=== PATIENT | female | born 1945 | race Caucasian/White ===

== ENCOUNTER 2019-12-01 12:10 | Inpatient (IN) ==
[2019-12-01] MEDS ORDERED: ZOFRAN IV ONE (13:21)
[2019-12-01] MEDS ORDERED: M.V.I.-12 10 ML, FOLIC ACID 1 MG, MAGNESIUM SULFATE 1 GM, THIAMINE 100 MG in NS 1,000 ML IV ONE (13:21)
[2019-12-01] MEDS ORDERED: PEPCID IV ONE (13:22)
[2019-12-01] MEDS ORDERED: PROTONIX IV ONE (13:22)
[2019-12-01] MEDS ORDERED: SODIUM CHLORIDE 0.9% INJ ONE ×2 (13:22)
[2019-12-01 14:00] LABS: URINE SOURCE CLEAN CATCH
[2019-12-01 14:07] LABS: BILIRUBIN URINE NEGATIVE (NEGATIVE); BLOOD URINE NEGATIVE (NEGATIVE); COLOR YELLOW; GLUCOSE URINE NEGATIVE (NEGATIVE); KETONE URINE 60 mg/dL (NEGATIVE); LEUKOCYTES URINE NEGATIVE (NEGATIVE); NITRITE URINE NEGATIVE (NEGATIVE); PROTEIN URINE 30 mg/dL (NEGATIVE); SP GRAVITY URINE 1.026; TURBIDITY URINE CLEAR (CLEAR); UROBILINOGEN URINE 2 mg/dL (NORMAL)
[2019-12-01 14:11] LABS: UR EPITHELIAL CELLS <10 /HPF (<10); URINE BACTERIA NEGATIVE /HPF; URINE RBC <10 /HPF (<10); URINE WBC <10 /HPF (<10)
[2019-12-01 14:15] LABS: UR AMPHETAMINES QUAL NONE DETECTED (NONE DETECT); UR BARBITUATES QUAL NONE DETECTED (NONE DETECT); UR BENZODIAZEPIN QUAL NONE DETECTED (NONE DETECT); UR CANNABINOIDS QUAL NONE DETECTED (NONE DETECT); UR COCAINE QUAL NONE DETECTED (NONE DETECT); UR METHADONE QUAL NONE DETECTED (NONE DETECT); UR OPIATES QUAL NONE DETECTED (NONE DETECT); UR OXYCODONE QUAL NONE DETECTED (NONE DETECT); UR PCP QUAL NONE DETECTED (NONE DETECT)
[2019-12-01 14:21] LABS: BASO# 0.02 X1000 (0.0-0.2); BASO% 0.2 % (0.0-0.8); HEMATOCRIT 37.6 % (37.0-47.0); HEMOGLOBIN 13.3 g/dL (12.0-16.0); IMM GRAN# 0.03 X1000 (0.0-0.04); IMM GRAN% 0.3 % (0.0-0.5); LYMPH# 0.67 X1000 (1.2-3.4); LYMPH% 6.5 % (20.5-51.1); MCH 33.1 PG (27-31); MCHC 35.4 g/dL (33-37); MCV 93.5 FL (81-99); MONO# 0.72 X1000 (0.11-0.59); MONO% 6.9 % (1.7-9.3); MPV 10.3 FL (7.4-10.4); NEUT# 8.92 X1000 (1.4-6.5); NEUT% 86.1 % (42.2-75.2); PLT 229 X1000 (130-400); RBC 4.02 XMIL (4.2-5.4); RDW 11.6 % (11.5-14.5); WBC 10.36 X1000 (4.8-10.8)
[2019-12-01 14:32] LABS: URINE CASTS NONE SEEN; URINE CRYSTALS NONE SEEN; URINE YEAST NONE SEEN
[2019-12-01 14:39] LABS: AGAP 13; ALB/GLOB RATIO 2.2; ALBUMIN 4.3 g/dL (3.5-5.0); ALKALINE PHOSPHATASE 61 U/L (32-104); BUN 9 mg/dL (8-22); CALCIUM 9.1 mg/dL (8.8-10.2); CHLORIDE 78 mmol/L (98-107); COSMO 230; CREATININE 0.7 mg/dL (0.5-0.9); ESTIMATED GFR > 60; GLUCOSE 140 mg/dL (70-104); GOT 94 U/L (10-30); GPT 100 U/L (10-36); MAGNESIUM 1.5 mg/dL (1.5-2.7); POTASSIUM 4.9 mmol/L (3.5-5.1); TCO2 22 mmol/L (25-35); TOTAL BILIRUBIN 1.44 mg/dL (0.20-1.00); TOTAL PROTEIN 6.3 g/dL (6.3-8.3)
[2019-12-01 14:42] LABS: SODIUM 116 mmol/L (136-145)
--- NOTE | 2019-12-01 15:17 | PROVIDER DOCUMENTATION ---
This chart was entered by Sonali Mendez Scribe, acting as scribe for Otilio Morales MD. HPI-Abdominal Pain/GI Problem - General Chief Complaint: Vomiting Stated Complaint: vomiting x 3 days Time Seen by Provider: 12/01/19 12:57 Source: patient, EMS Allergies/Adverse Reactions: Patient Allergies Allergy/AdvReac Type Severity Reaction Status Date / Time No Known Allergies Allergy Verified 11/12/15 19:58 Home Medications: Home Medication List Medication Instructions Recorded Confirmed Last Taken Type Bupropion HCl [Bupropion Xl] 300 mg PO DAILY 12/01/19 12/01/19 Unknown History Estradiol 1.5 mg PO DAILY 12/01/19 12/01/19 Unknown History Losartan [Cozaar] 100 mg PO DAILY 12/01/19 12/01/19 Unknown History Metoprolol Succinate E.r. [Toprol 25 mg PO DAILY 12/01/19 12/01/19 Unknown History Xl] Neuro Calm 1 cap PO DAILY 12/01/19 12/01/19 Unknown History Omeprazole [Prilosec] 20 mg PO DAILY 12/01/19 12/01/19 Unknown History Pregnenolone 200 mg PO DAILY 12/01/19 12/01/19 Unknown History Progesterone, Micronized 250 mg PO QHS 12/01/19 12/01/19 Unknown History [Progesterone] Thyroid,Pork [Nature-Throid] 48.75 mg PO DAILY 12/01/19 12/01/19 Unknown History - History of Present Illness-ABD Nature of Presenting Problems: Pt is a 74 yowf brought in by EMS with c/o of vomiting for the last 3 days. Pt reports that she overdid her wine consumption on Tuesday night and has been unable keep any food or drink down since then and she thinks she is dehydrated. Pt reports that she usually drinks 6 bottles of chardonay wine per week. Pt says that she has just dry heaved this morning. Pt denies abdominal pain and diarrhea. Pt has a hx of HTN, depression, thyroid problems and heartburn. Pt is alert and pale in appearance. Pain Radiation: reports: no radiation Quality of Pain: reports: none Severity in ED: reports: mild Onset/Duration: reports: abrupt, 3 days ago Timing: reports: still present Activities at Onset: reports: light activity, other (drinkin wine). denies: out of country travel Modifying Factors: improves with: lying down. worse with: eating, movement, vomiting Associated Symptoms: reports: loss of appetite, vomiting. denies: constipation, diarrhea, fever/chills, headaches, shortness of breath Last BM: unsure Dark Stools Present?: reports: none noticed Rectal Bleeding: reports: none # of Diarrhea Episodes: 0 Rectal Pain: reports: none # of Vomiting Episodes: 0 (pt states that all she has done this morning is dry heave ) Bruising or Bleeding Gums?: No Similar Symptoms Previously?: No Recently seen or treated by another doctor?: No Review of Systems - Adult - REVIEW OF SYSTEMS - ADULT Constitutional: denies: chills, fever Eyes: reports: no symptoms reported Ears, Nose, Mouth & Throat: reports: no symptoms reported Cardiovascular: denies: chest pain, syncope Respiratory: denies: cough, shortness of breath Gastrointestinal: reports: see HPI, vomiting. denies: abdominal pain, diarrhea, nausea Genitourinary: reports: no symptoms reported Musculoskeletal: reports: no symptoms reported Integumentary: reports: no symptoms reported Neurological: reports: no symptoms reported Psychiatric: reports: no symptoms reported Endocrine: reports: no symptoms reported Hematologic/Lymphatic: reports: no symptoms reported Allergic/Immunologic: reports: no symptoms reported All Other Systems: Reviewed and Negative Past History - Adult - PAST MEDICAL HISTORY-ADULT Review of Records: reports: Nursing Assessment Review, Medications Reviewed, Social history reviewed & non-contributory. Major Childhood Illnesses: reports: denies history Cardiovascular: reports: blood clots, HTN Respiratory: reports: denies history Gastrointestinal: reports: denies history Obstetrical/Gynecological: reports: denies history Genitourinary: reports: denies history Musculoskeletal: reports: chronic pain, neck/back injury Neurological: reports: denies history Psychiatric: reports: depression Endocrine/Immune: reports: denies history Other Conditions: reports: denies history - PRIOR SURGERIES/PROCEDURES Surgical/Procedure History: reports: appendectomy, back/neck - IMMUNIZATION STATUS Childhood Immunizations: See Nurse Assessment Flu Vaccine: See Nurse Assessment - FAMILY HISTORY Family History: reviewed, not pertinent - SOCIAL HISTORY Smoking: denies Substance Use: alcohol Alcohol Use Frequency: every day Number of drinks per typical drinking period:: 3-4 drinks Physical Exam-General - PHYSICAL EXAM-ADULT Initial Vital Signs Reviewed: Yes - CONSTITUTIONAL General Appearance: alert, mild distress - EYES Eyes: PERRL/EOMI, pink conjunctivae - HEAD, EARS, NOSE, MOUTH & THROAT HENMT: normocephalic/atraumatic, moist mucous membranes - NECK Neck: non-tender, full range of motion, supple - RESPIRATORY Respiratory: chest non-tender, lungs clear, normal breath sounds, no respiratory distress - CARDIOVASCULAR Cardiovascular: normal peripheral pulses, regular rate, rhythm - GASTROINTESTINAL (ABDOMEN) Abdominal Exam: normal bowel sounds, soft - LYMPHATIC Lymphatic: no adenopathy - MUSCULOSKELETAL Back Exam: normal inspection Extremity: non-tender - SKIN Integumentary: normal turgor, warm/dry, pallor - NEUROLOGIC Neurologic: grossly normal - PSYCHIATRIC Psych/Mental Status: normal mood/affect, normal thought content, normal thought process, oriented x 3 Progress - PLAN OF CARE/RESULTS Progress/Plan/Lab Results: Vital Signs - 8 hr 12/01/19 12:16 Temperature 98.1 F Pulse Rate 71 Respiratory Rate 18 Blood Pressure 139/99 O2 Sat by Pulse Oximetry 97 Result Diagrams: 12/01/19 13:41 12/01/19 13:41 - CONSULTS/PCP/HOSPITALIST Notification #1 *Consult/PCP/Hospitalist*: Dr. Sprague Time Discussed: 14:55 Reason/Comments: Discussing POC Departure - Departure Date of Disposition Decision: 12/01/19 Time of Disposition Decision: 15:14 DIAGNOSIS: Hyponatremia, Chronic alcohol use, Weakness Vomiting Qualifiers: Vomiting type: unspecified Vomiting Intractability: unspecified Nausea presence: with nausea Qualified Code(s): R11.2 - Nausea with vomiting, unspecified Disposition: ADMITTED INPATIENT 09 Certified Medical Emergency: Emergent Condition: Stable Referrals and Follow-Ups: Boo Shi MD [Primary Care Provider] - - Critical Care Note This patient required my direct & personal management of CC.: No Attestation - Physician/ RAMANA Attestation Patient care was provided by Advanced Practice Provider:: No The physician spent face to face time with patient:: Yes Advanced Practice Provider documentation review:: Supervising physician onsite and consulted in the evaluation and care of this patient. The physician did have a face to face encounter with the patient. This chart was documented by the indicated scribe, (Mendez,Sonali L., Scribe) and accurately reflects the services I performed and decisions made by me, Otilio Morales MD, as attested by the provider's signature.
[2019-12-01] MEDS ORDERED: NS 1,000 ML IV SCH ×3 (16:13→22:00)
[2019-12-01] MEDS ORDERED: ZOFRAN IV PRN (16:13)
[2019-12-01] MEDS: LOVENOX SUBQ SCH (16:24)
--- NOTE | 2019-12-01 16:41 | EKG Report ---
Test Performed on : 12/01/2019 4:34:16 PM Test Reason : vomiting Blood Pressure : / mmHG Vent. Rate : 078 BPM Atrial Rate : 078 BPM P-R Int : 152 ms QRS Dur : 100 ms QT Int : 386 ms P-R-T Axes : 035 017 026 degrees QTc Int : 440 ms Normal sinus rhythm. Normal ECG No previous ECGs available Confirmed by Ramon Sprague MD ([id number]) on 12/02/2019 5:01:23 PM
[2019-12-01] MEDS ORDERED: ATIVAN IV ONE (17:26)
[2019-12-01 18:32] LABS: AMYLASE 23 U/L (20-200); LIPASE 28 U/L (13-60)
--- NOTE | 2019-12-01 19:59 | HISTORY AND PHYSICAL ---
PRIMARY CARE PHYSICIAN: Dr. Pradip Shi. CHIEF COMPLAINT: Anorexia, nausea, vomiting. HISTORY OF PRESENT ILLNESS: A 74-year-old, white female with past medical history significant for hypertension, mixed hyperlipidemia, major depression, and reflux disease presents for evaluation of above-mentioned symptoms. Pertinent history of present illness began on Tuesday. Historically, patient states that she does drink in excess. She drinks approximately 1 bottle of wine daily. On Tuesday, the patient states she drank 1-1/2 bottles of wine. The patient did not feel well Tuesday evening. On , she was unable to eat secondary to intractable nausea and vomiting associated with any p.o. intake. Since that time, patient states that she has had minimal liquid or solid intake. She has not had any alcohol since that time. She denies fevers, chills, shortness of breath, chest pain, hematemesis, melena, or hematochezia. Because of her persistent symptoms, patient presented to the emergency department today. Full evaluation was pursued. The patient was found to have elevated liver enzymes as well as a significantly low sodium of 116. The patient will be admitted to the hospital for full evaluation and management. Of note, over the course of the last 24-48 hours, patient has exhibited evidence of withdrawal with increasing tremor. PAST MEDICAL HISTORY: 1. Hypertension. 2. Mixed hyperlipidemia. 3. Depression. 4. Reflux disease. 5. Alcohol use. 6. History of a deep venous thrombosis. CURRENT MEDICATIONS: 1. Estradiol 1.5 mg daily. 2. NeuroCalm daily. 3. Omeprazole 20 mg daily. 4. Progesterone 250 mg at bedtime. 5. Pregnenolone 200 mg daily. 6. Bupropion ER 300 mg daily. 7. Losartan 100 mg daily. 8. Metoprolol ER 25 mg daily. 9. Nature Thyroid 48.75 mg daily. ALLERGIES: The patient states she has difficulty tolerating statin medication. SOCIAL HISTORY: Patient denies tobacco or illicit drug use. She drinks approximately 1 bottle of wine daily. She works at the [employer] office. FAMILY HISTORY: Patient's mother passed at age 36 secondary to complications of vaginal cancer. Patient's patient's father passed at age 42 secondary to complications of alcoholism. REVIEW OF SYSTEMS: A 12 point review of systems was performed. Pertinent positives and negatives are noted in history present illness. PHYSICAL EXAMINATION: VITAL SIGNS: Temperature 98.9 degrees, heart rate 79, respirations 20, blood pressure is 142/68. GENERAL: Slightly anxious. No acute distress. HEENT: Normocephalic, atraumatic. Pupils equal, round, react to light. Extraocular muscles intact. Sclerae anicteric. [place] conjunctivae. Oral and nasopharynx clear without exudate. NECK: Supple. No lymphadenopathy. No thyromegaly. No bruits auscultated. CARDIOVASCULAR: Regular rate and rhythm. No significant murmurs, rubs, or gallops. PULMONARY: Clear to auscultation bilaterally. ABDOMEN: Soft, nontender, nondistended. Positive bowel sounds. EXTREMITIES: Moves all extremities well. No significant clubbing, cyanosis, or edema. NEUROLOGIC: Cranial 2 through 12 grossly intact. Motor and sensory grossly intact. PSYCHOLOGIC: Appropriate. LABORATORY DATA: White blood cell count 10.36, hemoglobin 13.3, hematocrit 37.6, platelet count 229,000. Sodium 116, potassium 4.9, chloride 78, bicarb 22, BUN [*] creatinine 0.7, glucose 140, calcium 9.1, magnesium 1.5, total bilirubin 1.44, total protein 6.3, albumin 4.3, alkaline phosphatase 61, AST 94, ALT 100, amylase 23, lipase 28. Urinalysis revealed ketones and protein present. ASSESSMENT AND PLAN: 74-year-old white female with past medical history as noted presents for evaluation of intractable nausea and vomiting. Symptoms began after a binge drinking episode. In the setting of elevated liver enzymes and significant symptoms, this likely is a consequence of alcoholic hepatitis. The patient will be admitted to the hospital for full evaluation and management. 1. Admit to General Medicine. 2. Alcoholic hepatitis-per history, this is secondary to excessive alcohol intake. Patient will be placed n.p.o. We will initiate aggressive but cautious IV hydration. We will continue supportive care. 3. Hyponatremia-sodium has decreased considerably below her baseline in the past. This likely is a consequence of decreased p.o. intake as well as nausea and vomiting. The patient will be started on IV hydration. We will check a sodium level every 6 hours. We will adjust fluids to maintain a sodium increase of approximately 8 to 10 millimoles per L per day. 4. Intractable nausea, vomiting. This is a consequence of alcoholic hepatitis with hyponatremia contributing. We will treat supportively. 5. Alcoholism-patient is manifesting some signs of alcohol withdrawal. We will provide a dose of Ativan now. We will titrate off as necessary. 6. Reflux disease-patient is at high risk for gastritis. We will start IV pantoprazole while n.p.o. 7. Hypertension-patient's losartan and metoprolol will be continued for now. This will be followed. 8. Depression/anxiety-we will continue Wellbutrin therapy. 9. Fluid, electrolytes, nutrition. We will monitor electrolytes, normal saline at 75 mL an hour. N.p.o. prophylaxis. Patient will be placed on subcu Lovenox. cc: Ramon Sprague MD
[2019-12-01] MEDS: ATIVAN IV PRN (20:21)
[2019-12-01 21:19] LABS: AGAP 13; BUN 7 mg/dL (8-22); CALCIUM 8.3 mg/dL (8.8-10.2); CHLORIDE 87 mmol/L (98-107); COSMO 245; CREATININE 0.6 mg/dL (0.5-0.9); ESTIMATED GFR > 60; GLUCOSE 112 mg/dL (70-104); SODIUM 122 mmol/L (136-145); TCO2 22 mmol/L (25-35)
[2019-12-02 02:00] LABS: BASO# 0.02 X1000 (0.0-0.2); BASO% 0.3 % (0.0-0.8); EOS# 0.02 X1000 (0.0-0.7); EOS% 0.3 % (0.0-10.0); HEMATOCRIT 36.9 % (37.0-47.0); HEMOGLOBIN 12.6 g/dL (12.0-16.0); LYMPH# 0.96 X1000 (1.2-3.4); LYMPH% 12.1 % (20.5-51.1); MCH 32.6 PG (27-31); MCHC 34.1 g/dL (33-37); MCV 95.6 FL (81-99); MONO# 0.97 X1000 (0.11-0.59); MONO% 12.2 % (1.7-9.3); MPV 9.5 FL (7.4-10.4); NEUT# 5.96 X1000 (1.4-6.5); NEUT% 75.1 % (42.2-75.2); PLT 204 X1000 (130-400); RBC 3.86 XMIL (4.2-5.4); RDW 11.6 % (11.5-14.5); WBC 7.93 X1000 (4.8-10.8)
[2019-12-02 02:15] LABS: AMYLASE 23 U/L (20-200); LIPASE 34 U/L (13-60)
[2019-12-02 02:23] LABS: AGAP 12; BUN 7 mg/dL (8-22); CALCIUM 8.5 mg/dL (8.8-10.2); CHLORIDE 94 mmol/L (98-107); COSMO 258; CREATININE 0.7 mg/dL (0.5-0.9); ESTIMATED GFR > 60; GLUCOSE 117 mg/dL (70-104); POTASSIUM 4.4 mmol/L (3.5-5.1); SODIUM 129 mmol/L (136-145); TCO2 23 mmol/L (25-35)
[2019-12-02] MEDS: ATIVAN IV PRN ×2 (05:49→17:13)
[2019-12-02 06:05] LABS: AGAP 11; BUN 6 mg/dL (8-22); CALCIUM 8.5 mg/dL (8.8-10.2); CHLORIDE 92 mmol/L (98-107); COSMO 253; CREATININE 0.7 mg/dL (0.5-0.9); ESTIMATED GFR > 60; GLUCOSE 110 mg/dL (70-104); POTASSIUM 3.9 mmol/L (3.5-5.1); SODIUM 127 mmol/L (136-145); TCO2 24 mmol/L (25-35)
[2019-12-02] MEDS: PRILOSEC PO SCH (06:10)
[2019-12-02] MEDS: COZAAR PO SCH (10:12)
[2019-12-02] MEDS: WELLBUTRIN XL PO SCH (10:12)
[2019-12-02] MEDS: TOPROL XL PO SCH (10:12)
[2019-12-02] MEDS: PATIENT'S OWN MED PO SCH (10:13)
[2019-12-02 14:04] LABS: AGAP 10; BUN 7 mg/dL (8-22); CALCIUM 8.6 mg/dL (8.8-10.2); CHLORIDE 90 mmol/L (98-107); COSMO 250; CREATININE 0.6 mg/dL (0.5-0.9); ESTIMATED GFR > 60; GLUCOSE 105 mg/dL (70-104); POTASSIUM 4.4 mmol/L (3.5-5.1); SODIUM 125 mmol/L (136-145); TCO2 25 mmol/L (25-35)
[2019-12-02] MEDS ORDERED: SODIUM CHLORIDE 0.9% INJ SCH (16:00)
--- NOTE | 2019-12-02 16:19 | PROGRESS NOTE ---
DATE: 12/02/2019 SUBJECTIVE: The patient was admitted yesterday with presumed alcoholic hepatitis and associated significant hyponatremia. The patient was started on IV fluids. She was placed n.p.o. As-needed Ativan was initiated for withdrawals. Initial sodium was noted to be 116, this trended upwards to 129 within approximately 12 hours of admission. IV fluids were held. Most recent sodium was 125. Upon arrival this morning, the patient stated she felt much improved. She was tolerating water without significant nausea or vomiting. Her anxiety and tremor had improved considerably with Ativan. She denies fevers, chills, shortness of breath, or chest discomfort. OBJECTIVE: Vital Signs: T-max 99.4, heart rate 72 to 81, respirations 17 to 22, blood pressure is 139 to 159/65 to 99. General: Well nourished, well developed, no acute distress. Cardiovascular: Regular rate and rhythm. No significant murmurs, rubs or gallops. Pulmonary: Clear to auscultation bilaterally. Abdomen: Soft, nontender, nondistended. Positive bowel sounds. Extremities: Moves all extremities well. No significant clubbing, cyanosis or edema. Dermatologic: Evaluation reveals no evidence of rash. LABORATORY DATA: Sodium 125, potassium 4.4, chloride 90, bicarbonate 25, BUN 7, creatinine 0.6, glucose 105, calcium 8.6. ASSESSMENT AND PLAN: 1. Alcoholic hepatitis - Overall, the patient clinically is improving. She is tolerating water this morning. We will slowly advance diet. We will treat alcohol withdrawal as described below. 2. Hyponatremia - Initial sodium was 116. This increase to 129 and IV fluids were held. At present time, her sodium is 125. As the patient is tolerating p.o., we will start a liquid diet. We will continue to monitor BMP every 6 hours. Should sodium continue to trend downward, we will consider resuming therapy. 3. Intractable nausea and vomiting - This likely was a consequence of alcoholic hepatitis with hyponatremia contributing. With supportive care, she has achieved significant improvement. 4. Alcoholism/alcohol withdrawal - Today, the patient is much more comfortable with as needed Ativan intervention. We will continue this for now. 5. Reflux disease - We will continue the patient on IV pantoprazole. If the patient continues to tolerate p.o., we will plan transitioning to oral PPI in the near future. 6. Hypertension - Blood pressure is slightly elevated. For now, we will continue metoprolol and losartan therapy. We will follow this. 7. Depression/anxiety - We will continue the patient on Wellbutrin therapy. 8. Disposition - The patient continues to require senior care care in a hospital setting. We will plan discharge home once appropriate. cc: Ramon Sprague MD
[2019-12-02] MEDS: PROTONIX IV SCH (16:35)
[2019-12-02] MEDS: LOVENOX SUBQ SCH (16:35)
[2019-12-02 21:51] LABS: AGAP 9; BUN 7 mg/dL (8-22); CALCIUM 8.2 mg/dL (8.8-10.2); CHLORIDE 94 mmol/L (98-107); COSMO 253; CREATININE 0.6 mg/dL (0.5-0.9); ESTIMATED GFR > 60; GLUCOSE 100 mg/dL (70-104); POTASSIUM 4.2 mmol/L (3.5-5.1); SODIUM 127 mmol/L (136-145); TCO2 24 mmol/L (25-35)
[2019-12-03 01:57] LABS: AGAP 12; BUN 7 mg/dL (8-22); CALCIUM 8.4 mg/dL (8.8-10.2); CHLORIDE 95 mmol/L (98-107); COSMO 259; CREATININE 0.6 mg/dL (0.5-0.9); ESTIMATED GFR > 60; GLUCOSE 105 mg/dL (70-104); POTASSIUM 4.1 mmol/L (3.5-5.1); SODIUM 130 mmol/L (136-145); TCO2 23 mmol/L (25-35)
[2019-12-03] MEDS: PRILOSEC PO SCH (06:26)
[2019-12-03 08:43] LABS: AGAP 11; BUN 7 mg/dL (8-22); CALCIUM 8.7 mg/dL (8.8-10.2); CHLORIDE 93 mmol/L (98-107); COSMO 255; CREATININE 0.6 mg/dL (0.5-0.9); ESTIMATED GFR > 60; GLUCOSE 169 mg/dL (70-104); POTASSIUM 3.4 mmol/L (3.5-5.1); SODIUM 126 mmol/L (136-145); TCO2 22 mmol/L (25-35)
[2019-12-03 08:55] LABS: ALB/GLOB RATIO 1.3; ALBUMIN 3.5 g/dL (3.5-5.0); DIRECT BILIRUBIN 0.2 mg/dL (0.00-0.20); TOTAL BILIRUBIN 0.9 mg/dL (0.20-1.00); TOTAL PROTEIN 6.1 g/dL (6.3-8.3)
[2019-12-03] MEDS ORDERED: PRILOSEC PO SCH (09:00)
[2019-12-03] MEDS: TOPROL XL PO SCH (09:16)
[2019-12-03] MEDS: WELLBUTRIN XL PO SCH (09:16)
[2019-12-03] MEDS: COZAAR PO SCH (09:16)
[2019-12-03] MEDS: PATIENT'S OWN MED PO SCH ×2 (09:17→12:16)
[2019-12-03] MEDS: LIBRIUM PO SCH ×3 (09:23→16:51)
[2019-12-03] MEDS: ESTRACE PO SCH (12:15)
--- NOTE | 2019-12-03 13:30 | PROGRESS NOTE ---
DATE: 12/03/2019 SUBJECTIVE: Ms. Avendano was admitted to [facility] with acute alcoholic hepatitis. Clinically, she continues to improve. She is awake and alert, and is oriented to name, place and time. Liver function tests are trending downward. Her AST was 68. The ALT was 80. She is with complaint of some tremulousness, but has had no seizure activity. She was also admitted with hyponatremia. Serum sodium increased to 130 yesterday. Today, her sodium was 126. She denies any mental status changes or seizure activity. OBJECTIVE: Vital signs: Temperature 98.3 degrees, pulse 78, respirations 17, blood pressure 142/75. CV: Regular rate and rhythm. Lungs: Clear. Abdomen: Soft, nontender with active bowel sounds. No hepatosplenomegaly. No abdominal bruits. ASSESSMENT AND PLAN: 1. Acute alcoholic hepatitis. Clinically, she continues to improve. We will advance her to a gastrointestinal soft diet. I will recheck a serum sodium and liver function tests in the morning. 2. History of alcohol abuse. She is having some increasing tremulousness. She denies any seizure activity. I will begin Librium 10 mg three times a day. cc: MD Ramon Funes MD
[2019-12-03 14:15] LABS: AGAP 12; BUN 12 mg/dL (8-22); CALCIUM 8.9 mg/dL (8.8-10.2); CHLORIDE 89 mmol/L (98-107); COSMO 248; CREATININE 0.8 mg/dL (0.5-0.9); ESTIMATED GFR > 60; GLUCOSE 106 mg/dL (70-104); POTASSIUM 3.8 mmol/L (3.5-5.1); SODIUM 123 mmol/L (136-145); TCO2 22 mmol/L (25-35)
[2019-12-03] MEDS: LOVENOX SUBQ SCH (16:51)
[2019-12-03] MEDS: PROTONIX IV SCH (16:51)
[2019-12-03] MEDS: ATIVAN IV PRN (17:03)
[2019-12-04] MEDS: WELLBUTRIN XL PO SCH (08:19)
[2019-12-04] MEDS: LIBRIUM PO SCH ×3 (08:21→16:22)
[2019-12-04] MEDS: COZAAR PO SCH (08:21)
[2019-12-04] MEDS: ESTRACE PO SCH (08:21)
[2019-12-04] MEDS: TOPROL XL PO SCH (08:21)
[2019-12-04] MEDS: PATIENT'S OWN MED PO SCH ×2 (08:23)
[2019-12-04] MEDS ORDERED: NS 1,000 ML IV SCH (08:30)
[2019-12-04] MEDS: ATIVAN IV PRN (11:47)
[2019-12-04 14:50] LABS: AGAP 9; BUN 13 mg/dL (8-22); CHLORIDE 96 mmol/L (98-107); COSMO 258; CREATININE 0.8 mg/dL (0.5-0.9); ESTIMATED GFR > 60; GLUCOSE 104 mg/dL (70-104); POTASSIUM 3.7 mmol/L (3.5-5.1); SODIUM 128 mmol/L (136-145); TCO2 23 mmol/L (25-35)
--- NOTE | 2019-12-04 15:03 | PROGRESS NOTE ---
DATE: 12/04/2019 Mrs. Avendano was admitted to [facility] with acute alcoholic hepatitis. Clinically, she continues to improve. Her tremulousness and nervousness have largely resolved on the Librium. She has had no seizure activity. She is tolerating a GI soft diet without nausea, vomiting, or abdominal pain. Serum sodium has dropped from 130 to 123. She is afebrile. Vital signs are stable. CV: Regular rate and rhythm. Lungs: Clear. Abdomen: Soft, nontender with active bowel sounds. ASSESSMENT AND PLAN: 1. Alcohol abuse. We will continue Librium to reduce withdrawal symptoms and will set her up as an outpatient for counseling to help her stop drinking. 2. Alcoholic hepatitis. We will continue a GI soft diet, fluids and recheck liver function tests in the morning. 3. Hyponatremia. I will check a urine osmolality, serum osmolality and urine sodium. I will give her a liter of fluid. cc: MD Ramon Funes MD
[2019-12-04] MEDS: PROTONIX IV SCH (16:53)
[2019-12-04] MEDS: LOVENOX SUBQ SCH (16:53)
[2019-12-05 08:04] VITALS: BP 148/82
[2019-12-05] MEDS: COZAAR PO SCH (08:18)
[2019-12-05] MEDS: TOPROL XL PO SCH (08:18)
[2019-12-05] MEDS: WELLBUTRIN XL PO SCH (08:19)
[2019-12-05] MEDS: ESTRACE PO SCH (08:19)
[2019-12-05] MEDS: PATIENT'S OWN MED PO SCH ×2 (08:25)
[2019-12-05] MEDS: LIBRIUM PO SCH (08:26)
[2019-12-05 09:06] LABS: AGAP 11; ALB/GLOB RATIO 1.4; ALBUMIN 3.6 g/dL (3.5-5.0); ALKALINE PHOSPHATASE 58 U/L (32-104); BUN 10 mg/dL (8-22); CALCIUM 9.2 mg/dL (8.8-10.2); CHLORIDE 99 mmol/L (98-107); COSMO 264; CREATININE 0.7 mg/dL (0.5-0.9); ESTIMATED GFR > 60; GLUCOSE 107 mg/dL (70-104); GOT 64 U/L (10-30); GPT 83 U/L (10-36); POTASSIUM 3.7 mmol/L (3.5-5.1); SODIUM 132 mmol/L (136-145); TCO2 22 mmol/L (25-35); TOTAL BILIRUBIN 0.47 mg/dL (0.20-1.00); TOTAL PROTEIN 6.1 g/dL (6.3-8.3)
--- NOTE | 2019-12-05 15:40 | DISCHARGE SUMMARY ---
ADMISSION DATE: 12/01/2019 DISCHARGE DATE: 12/05/2019 DISCHARGE DIAGNOSES: 1. Hyponatremia secondary to volume depletion. 2. Volume depletion due to nausea and vomiting. 3. Acute alcoholic hepatitis. 4. Chronic alcohol abuse. 5. Essential hypertension. 6. Primary hypothyroidism. 7. Major depression. DISCHARGE INSTRUCTIONS: 1. Return to clinic in 1 week to see me, Dr. Pradip Shi. 2. Activity as tolerated. 3. Healthy heart diet. 4. Medications: Librium 10 mg t.i.d., metoprolol-XL 25 mg daily, omeprazole 20 mg daily, progesterone 250 mg daily, estradiol 1.5 mg daily, losartan 100 mg daily, Nature Throid 48.75 mg daily, and bupropion XL 300 mg daily. PHYSICAL EXAMINATION: general: This is a well-developed, well-nourished, 74-year-old, lady in no apparent distress. vital signs: She is afebrile. Vital signs are stable. CARDIOVASCULAR: Regular rate and rhythm. Lungs: Clear. Abdomen: Soft and nontender with active bowel sounds. HOSPITAL COURSE: Mrs. Susan Avendano has a longstanding history of alcohol abuse. She presented to the ER with intractable nausea and vomiting. She was anorexic. Her serum sodium was noted to be 121. She was aggressively rehydrated with normal saline and was given fluid throughout her hospitalization. Her serum sodium normalized and was noted to be 132 at discharge. As stated earlier, she does have a history of chronic alcohol abuse. She had not had alcohol in several days prior to admission. Dr. Sprague initially gave her Ativan on an as-needed basis because of increasing tremulousness and anxiety. We did add Librium 10 mg t.i.d. She never had any seizure activity. The tremulousness and agitation improved dramatically on the Librium. At the time of admission she was also noted to have acute alcoholic hepatitis without ascites. Liver function tests were elevated. We cautiously rehydrated her and tried to avoid hepatotoxic drugs. Liver function tests improved and were trending down at the time of discharge. Her AST was 64 and her ALT was 83 at discharge. I plan to recheck liver function tests in 1 week on return to clinic. As stated earlier, she does have a history of chronic alcoholism. She recognizes that she has a problem. She is willing to pursue outpatient rehabilitation. Information was given to her for various outpatient facilities. We will continue Librium 10 mg t.i.d. for 1 week and begin to titrate off as indicated. Having reached maximum hospital benefit, the patient was discharged in stable condition. cc: MD Ramon Funes MD
== END 2019-12-05 11:40 | disposition home or self-care (01) | DRG 433 ==
LOC: SUPCPDRO → ED 12:10 → EDIPHOLD 15:40 → 1N 17:42
PROVIDERS: ADMIT Internal Medicine; ATTEND Internal Medicine